=== PATIENT | female | born 1990 | race Asian ===

== ENCOUNTER 2024-09-12 07:45 | Inpatient (IN) ==
[2024-09-12] MEDS ORDERED: LIDOCAINE 1% LOCAL 20 ML VIAL INFIL PRN (08:00)
[2024-09-12] MEDS ORDERED: OXYTOCIN 30 UNITS/NSS 30 UNITS/500 ML BAG IV PRN ×2 (08:00→19:19)
[2024-09-12 08:43] LABS: Hematocrit (blood only) 39.4 % (37.0-47.0); Mean Corpuscular Hemoglobin 33.5 pg (25.0-34.0); Mean Corpuscular Hgb Conc 35.5 g/dL (32.0-36.0); Mean Corpuscular Volume 94.3 fL (80.0-100.0); Mean Platelet Volume 12.2 fL (9.4-12.4); Platelet Count 191 K/uL (130-400); RDW Coefficient of Variation 11.9 % (11.5-14.5); RDW Standard Deviation 41.4 fL (36.4-46.3); Red Blood Count 4.18 M/uL (4.20-5.40); White Blood Count 8.69 K/ul (4.8-10.8)
--- NOTE | 2024-09-12 08:50 | History & Physical Report ---
Date of Service September 12, 2024 Assessment & Plan (1) Post term over 40 weeks: (2) Encounter for induction of labor: (3) Gestational diabetes mellitus (GDM) affecting , antepartum: Plan admit, iv, labs. bsgs in active labor. fhts categ 1. arom done. add pitocin. exp ectant mgmt. epidural when desires. Admission and Anticipated Discharge Date Admission Date: September 12, 2024 History of Present Illness Chief Complaint: induction Primary Care Provider: NO PCP 34yo at 40+wks egmathieu presents to LD with cc of planned induction of labor. Some bleeding since exam yesterday. No rom. +FM PNC c/b 1. GDM PNL rhpos, ri, gbs neg OBH: g1 GYNH: nl paps no stds Allergies Allergy/AdvReac Type Severity Reaction Status Date / Time No Known Allergies Allergy Verified 09/11/24 10:20 Home Medications Medication Instructions Recorded Confirmed Type 21-iron fu-folic acid PO 01/25/24 09/11/24 History [ Complete] acetone (urine) test (Ketone Urine #50 ea 07/23/24 09/11/24 Rx Test strips) blood sugar diagnostic (OneTouch #150 ea 07/23/24 09/11/24 Rx Verio test strips) blood-glucose meter (OneTouch #1 ea 07/23/24 09/11/24 Rx Verio Reflect Meter) lancets 33 gauge (OneTouch Delica #150 ea 07/23/24 09/11/24 Rx Plus Lancet) Patient History Medical History (Updated 09/12/24 @ 08:48 by Gretel Bennett MD, FACOG) Varicella vaccination Surgical History No history of previous surgery Family History Grandfather (Paternal) Stomach cancer Father Diabetes Denies family history of Ovarian cancer Breast cancer Colorectal cancer Social History (Updated 09/12/24 @ 07:58 by Bhumika Raman, RN) Smoking Status: Never smoker Do You Dip or Chew Tobacco: No; Hx Alcohol Use: No Hx Substance Use: No Preferred Language: Nepali Communication Ability: Effective Visual Impairment: No Limitations Temperature Logging Operator Required: No Beliefs That Will Affect Care: None marital status: marital status details: Cheo Preston (31) [phone] Current Living Situation: Spouse Current Living Situation Comment: lives with spouse, no pets current occupational status: employed current occupation: [employer] Other Information That Helps Us Care for You: No Feels Safe at Home: Yes Safety Concerns: Feels Safe At This Time Diet: regular Diet Comment: GDM Assistive Devices: None Review of Systems as per Subjective / HPI Physical Exam Constitutional: WD/WN, vitals as above Respiratory: normal respiratory effort, lungs clear to auscultation Cardiovascular: Rate/Rhythm: regular rate and regular rhythm Gastrointestinal (Abdomen): soft gravid nt efw 7-8# Musculoskeletal: no edema nontender calves Neurologic: grossly normal Psychiatric: A+Ox3, euthymic affect Genitourinary: Manual OB Exam: + cervical dilation 3 cm, + cervical effacement (75%), + station -2 and + amniotic fluid (arom) clear OB Exam Monitor Tracing: + external FHT monitor used, + external uterine monitor used (irreg), + category I and + normal FHT variability Results & Data Vital Signs (Past 12 Hours) Vital Signs Temp Pulse Resp BP 09/12/24 07:59 97.9 F 68 20 114/64 09/12/24 07:55 68 114/64 Coding Level of Care Code None Diagnoses Post term over 40 weeks O48.0 Encounter for induction of labor Z34.90 Gestational diabetes mellitus (GDM) affecting , antepartum O24.419
[2024-09-12] MEDS: OXYTOCIN 30 UNITS/NSS 30 UNITS/500 ML BAG IV PRN (08:57)
[2024-09-12] MEDS: LACTATED RINGER'S 1,000 ML IV PRN (08:57)
--- NOTE | 2024-09-12 09:46 | Anesthesiology Consultation ---
Date of Service September 12, 2024 Assessment & Plan Chart Review Chart Review: Acceptable Risk for Labor Epidural Consults Requested none History Height/Weight Height: 5 ft 6.14 in Weight: 23.587 kg Allergies Allergy/AdvReac Type Severity Reaction Status Date / Time No Known Allergies Allergy Verified 09/11/24 10:20 Medications Home Medications Medication Instructions Recorded Confirmed Last Taken 21-iron fu-folic acid PO 01/25/24 09/11/24 09/10/24 [ Complete] acetone (urine) test (Ketone Urine #50 ea 07/23/24 09/11/24 Unknown Test strips) blood sugar diagnostic (OneTouch #150 ea 07/23/24 09/11/24 Unknown Verio test strips) blood-glucose meter (OneTouch #1 ea 07/23/24 09/11/24 Unknown Verio Reflect Meter) lancets 33 gauge (OneTouch Delica #150 ea 07/23/24 09/11/24 Unknown Plus Lancet) Active Medications Generic Name Dose Route Start Last Admin Trade Name Freq PRN Reason Stop Dose Admin Lactated Ringer's 1,000 mls @ 125 mls/hr 09/12/24 08:00 09/12/24 09:30 Lr IV 09/13/24 07:59 999 mls/hr .Q8H PRN Infusion L&D Protocol Protocol Oxytocin 30 units in 500 mls @ 3 mls/hr 09/12/24 08:45 09/12/24 09:30 Pitocin 30 Units/Nss IV 09/14/24 08:44 0.18 units/hr .Q24H PRN 3 mls/hr Labor Induction/Augmentation Titration Protocol 0.18 UNITS/HR Past Medical History Medical History (Updated 09/12/24 @ 08:48 by Gretel Bennett MD, FACOG) Varicella vaccination Past Family History Family History Grandfather (Paternal) Stomach cancer Father Diabetes Denies family history of Ovarian cancer Breast cancer Colorectal cancer Past Surgical History Surgical History No history of previous surgery Social History Smoking Status: Never smoker Do You Dip or Chew Tobacco: No Hx Alcohol Use: No Hx Substance Use: No Physical Exam Vital Signs Last Vital Signs Temp 36.6 C 09/12/24 07:59 Pulse 69 09/12/24 08:55 Resp 18 09/12/24 08:55 BP 131/86 09/12/24 08:55 Testing Laboratory Results 09/12/24 08:16 09/12/24 08:21 POC Glucose 93
[2024-09-12] MEDS: LIDOCAINE 2%/EPINEPHRINE 1:200,000 20 ML PF ONE (10:07)
[2024-09-12] MEDS: BUPIVACAINE 0.25% PF 30 ML VIAL ONE (10:07)
[2024-09-12] MEDS: fentANYL 2 MCG/ML BUPIVacaine 0.125%-NSS 100ML BAG ONE (10:08)
[2024-09-12] MEDS: SODIUM CHLORIDE 0.9% PF INJ 10 ML VIAL ONE (10:10)
[2024-09-12] MEDS: fentaNYL citrate PF 100 MCG/2 ML VIAL ONE (10:10)
[2024-09-12] MEDS ORDERED: SODIUM CHLORIDE 0.9% PF INJ 10 ML VIAL EPI PRN (10:16)
[2024-09-12] MEDS ORDERED: LIDOCAINE 2% MPF LOCAL 5 ML VIAL EPI PRN (10:16)
[2024-09-12] MEDS ORDERED: NALBUPHINE HCL INJ 10 MG/ML AMP IV PRN (10:16)
[2024-09-12] MEDS ORDERED: BUPIVACAINE 0.25% PF 30 ML VIAL EPI PRN (10:16)
[2024-09-12] MEDS ORDERED: ePHEDrine sulfate 50 MG/ML AMP IV PRN (10:16)
[2024-09-12] MEDS ORDERED: ROPIVACAINE 0.5% PF 5 MG/ML 20 ML VIAL EPI PRN (10:16)
[2024-09-12] MEDS ORDERED: NALOXONE HCL 1 MG in SODIUM CHLORIDE 0.9% 1,000 ML IV PRN (10:16)
[2024-09-12] MEDS ORDERED: NALOXONE HCL 0.4 MG/1 ML VIAL/CARP IV PRN (10:16)
[2024-09-12] MEDS ORDERED: diphenhydrAMINE 50 MG/ML VIAL IV PRN (10:16)
[2024-09-12] MEDS ORDERED: fentaNYL citrate PF 100 MCG/2 ML VIAL EPI PRN (10:16)
--- NOTE | 2024-09-12 12:08 | Labor Progress Brief Note ---
Date of Service September 12, 2024 Subjective pt comfortable with epidural. pit at 5 Assessment & Plan (1) Post term over 40 weeks: (2) Encounter for induction of labor: (3) Gestational diabetes mellitus (GDM) affecting , antepartum: Plan good cx change. fhts categ 1. need to increase pit to keep labor pattern regular. Admission and Anticipated Discharge Date Admission Date: September 12, 2024 Physical Exam Constitutional: WD/WN, vitals as above Genitourinary: Manual OB Exam: + cervical dilation 7 cm, + cervical effacement 80% and + station -2 OB Exam Monitor Tracing: + external FHT monitor used, + external uterine monitor used (q2-5 pit at 5), + category I and + normal FHT variability Results & Data Vital Signs (Past 12 Hours) Vital Signs Temp Pulse Resp BP Pulse Ox 09/12/24 12:01 96 09/12/24 12:01 76 09/12/24 12:01 68 130/70 09/12/24 11:56 67 95 09/12/24 11:51 74 95 09/12/24 11:46 71 121/74 96 09/12/24 11:41 69 96 09/12/24 11:36 79 98 09/12/24 11:31 97 09/12/24 11:31 73 09/12/24 11:31 72 132/85 09/12/24 11:26 71 97 09/12/24 11:21 72 96 09/12/24 11:16 96 09/12/24 11:16 70 09/12/24 11:16 71 131/91 09/12/24 11:11 77 97 09/12/24 11:06 77 97 09/12/24 11:02 63 120/87 09/12/24 11:01 74 97 09/12/24 11:00 20 09/12/24 11:00 98.6 F 20 09/12/24 10:58 76 120/76 09/12/24 10:56 74 95 09/12/24 10:52 73 120/79 09/12/24 10:51 75 94 09/12/24 10:48 73 126/84 09/12/24 10:46 78 94 09/12/24 10:42 71 118/77 09/12/24 10:41 71 94 03/05/25 10:39 67 133/68 03/05/25 10:36 96 H 95 09/12/24 10:33 77 18 103/65 09/12/24 10:31 70 94 09/12/24 10:27 71 18 124/73 09/12/24 10:26 73 95 09/12/24 10:22 75 20 120/71 09/12/24 10:21 72 18 111/63 09/12/24 10:21 72 95 09/12/24 10:17 72 111/63 09/12/24 10:16 74 96 09/12/24 10:15 77 18 115/68 09/12/24 10:13 75 18 119/71 09/12/24 10:11 71 18 122/74 95 09/12/24 10:09 72 18 124/71 09/12/24 10:07 71 18 126/74 09/12/24 10:06 70 97 09/12/24 10:05 98.6 F 74 18 94 09/12/24 10:03 75 114/73 09/12/24 10:01 74 125/80 96 09/12/24 09:56 96 09/12/24 09:56 77 09/12/24 09:56 71 126/79 09/12/24 09:51 76 99 09/12/24 08:55 69 18 131/86 09/12/24 07:59 97.9 F 68 20 114/64 09/12/24 07:55 68 114/64 Coding Level of Care Code None Diagnoses Post term over 40 weeks O48.0 Encounter for induction of labor Z34.90 Gestational diabetes mellitus (GDM) affecting , antepartum O24.419
[2024-09-12] MEDS: fentaNYL citrate PF 100 MCG/2 ML VIAL EPI STA (12:12)
[2024-09-12] MEDS: ePHEDrine sulfate 50 MG/ML AMP ONE (12:12)
[2024-09-12] MEDS: BUPIVACAINE 0.25% PF 30 ML VIAL EPI STA (12:12)
[2024-09-12] MEDS: LIDOCAINE 2%/EPINEPHRINE 1:200,000 20 ML PF EPI STA (12:13)
[2024-09-12] MEDS: SODIUM CHLORIDE 0.9% PF INJ 10 ML VIAL EPI STA (12:13)
--- NOTE | 2024-09-12 14:11 | Labor Progress Brief Note ---
Date of Service September 12, 2024 Subjective no pain with epidural Assessment & Plan (1) Post term over 40 weeks: (2) Encounter for induction of labor: (3) Gestational diabetes mellitus (GDM) affecting , antepartum: Plan making good cx change. fhts categ 1. c/w pit to keep labor pattern regular. Admission and Anticipated Discharge Date Admission Date: September 12, 2024 Physical Exam Constitutional: WD/WN, vitals as above Genitourinary: Manual OB Exam: + cervical dilation (8-9cm) OB Exam Monitor Tracing: + external FHT monitor used, + external uterine monitor used (q2-3, pit at 7), + category I and + normal FHT variability Results & Data Vital Signs (Past 12 Hours) Vital Signs Temp Pulse Resp BP Pulse Ox 09/12/24 14:06 70 96 09/12/24 14:01 78 108/62 98 09/12/24 13:56 75 95 09/12/24 13:51 77 94 09/12/24 13:46 70 118/77 95 09/12/24 13:41 70 94 09/12/24 13:36 72 94 09/12/24 13:31 67 95 09/12/24 13:30 72 121/68 09/12/24 13:26 68 95 09/12/24 13:21 69 94 09/12/24 13:16 68 94 09/12/24 13:15 67 118/69 09/12/24 13:11 70 94 09/12/24 13:06 70 96 09/12/24 13:01 69 119/68 95 09/12/24 13:00 20 09/12/24 13:00 98.6 F 20 09/12/24 12:56 69 95 09/12/24 12:51 71 95 09/12/24 12:46 71 95 09/12/24 12:45 69 116/74 09/12/24 12:41 69 96 09/12/24 12:36 70 94 09/12/24 12:31 69 96 09/12/24 12:30 69 114/69 09/12/24 12:26 69 96 09/12/24 12:21 71 96 09/12/24 12:16 70 95 09/12/24 12:15 68 120/73 09/12/24 12:11 72 96 09/12/24 12:06 77 96 09/12/24 12:01 96 09/12/24 12:01 76 03 12:01 68 130/70 0305 11:56 67 95 05 11:51 74 95 05 11:46 71 121/74 96 09/12/24 11:41 69 96 05 11:36 79 98 09/12/24 11:31 97 09/12/24 11:31 73 0305 11:31 72 132/85 05 11:26 71 97 05 11:21 72 96 05 11:16 96 09/12/24 11:16 70 03 11:16 71 131/91 09/12/24 11:11 77 97 09/12/24 11:06 77 97 09/12/24 11:02 63 120/87 05 11:01 74 97 09/12/24 11:00 20 09/12/24 11:00 98.6 F 20 09/12/24 10:58 76 120/76 05 10:56 74 95 05 10:52 73 120/79 05 10:51 75 94 0305 10:48 73 126/84 05 10:46 78 94 05 10:42 71 118/77 05 10:41 71 94 0305 10:39 67 133/68 0305 10:36 96 H 95 05 10:33 77 18 103/65 03/05 10:31 70 94 0305 10:27 71 18 124/73 03/05/25 10:26 73 95 03/05/25 10:22 75 20 120/71 03/05/25 10:21 72 18 111/63 03/05/25 10:21 72 95 03/05/25 10:17 72 111/63 03/05/25 10:16 74 96 05/25 10:15 77 18 115/68 03/05/25 10:13 75 18 119/71 03/05/25 10:11 71 18 122/74 95 03/05/25 10:09 72 18 124/71 03/05/25 10:07 71 18 126/74 09/12/24 10:06 70 97 09/12/24 10:05 98.6 F 74 18 94 09/12/24 10:03 75 114/73 09/12/24 10:01 74 125/80 96 09/12/24 09:56 96 09/12/24 09:56 77 09/12/24 09:56 71 126/79 09/12/24 09:51 76 99 09/12/24 08:55 69 18 131/86 09/12/24 07:59 97.9 F 68 20 114/64 09/12/24 07:55 68 114/64 Coding Level of Care Code None Diagnoses Post term over 40 weeks O48.0 Encounter for induction of labor Z34.90 Gestational diabetes mellitus (GDM) affecting , antepartum O24.419
[2024-09-12] MEDS: fentANYL 2 MCG/ML BUPIVacaine 0.125%-NSS 100ML BAG EPI PRN (17:35)
--- NOTE | 2024-09-12 17:41 | Labor Progress Brief Note ---
Date of Service September 12, 2024 Subjective feeling some pressure Assessment & Plan (1) Post term over 40 weeks: (2) Encounter for induction of labor: (3) Gestational diabetes mellitus (GDM) affecting , antepartum: Plan begin 2nd stage. fhts categ 1. Admission and Anticipated Discharge Date Admission Date: September 12, 2024 Physical Exam Constitutional: WD/WN, vitals as above Genitourinary: Manual OB Exam: + cervical dilation 10 cm, + cervical effacement 100% and + station + 2 OB Exam Monitor Tracing: + external FHT monitor used, + external uterine monitor used, + category I and + normal FHT variability Results & Data Vital Signs (Past 12 Hours) Vital Signs Temp Pulse Resp BP Pulse Ox 09/12/24 17:36 100 H 92 09/12/24 17:34 86 87 L 09/12/24 17:31 192 H 89 L 09/12/24 17:30 86 134/76 09/12/24 17:28 229 H 77 L 09/12/24 17:26 105 H 93 09/12/24 17:23 81 86 L 09/12/24 17:21 77 95 09/12/24 17:16 82 97 09/12/24 17:15 99.0 F 82 18 123/76 09/12/24 17:11 79 96 09/12/24 17:07 77 88 L 09/12/24 17:06 78 96 09/12/24 17:01 82 130/79 93 09/12/24 16:56 78 93 09/12/24 16:51 88 96 09/12/24 16:46 94 09/12/24 16:46 76 09/12/24 16:46 80 130/70 09/12/24 16:41 88 93 09/12/24 16:36 80 93 09/12/24 16:31 94 09/12/24 16:31 82 09/12/24 16:31 78 123/81 09/12/24 16:30 20 09/12/24 16:30 20 09/12/24 16:26 96 H 95 09/12/24 16:21 83 95 09/12/24 16:16 90 131/81 95 09/12/24 16:13 84 89 L 09/12/24 16:11 91 H 96 09/12/24 16:06 94 H 94 09/12/24 16:03 96 H 89 L 09/12/24 16:01 85 95 09/12/24 16:00 88 20 125/79 09/12/24 15:56 103 H 94 09/12/24 15:51 99 H 94 09/12/24 15:46 81 119/80 94 09/12/24 15:41 80 95 09/12/24 15:36 78 94 09/12/24 15:31 81 94 09/12/24 15:30 78 126/79 09/12/24 15:26 74 95 09/12/24 15:21 75 95 09/12/24 15:16 77 97 09/12/24 15:15 76 122/72 09/12/24 15:11 80 96 09/12/24 15:06 76 97 09/12/24 15:01 96 09/12/24 15:01 76 03 15:01 72 121/74 09/12/24 14:56 77 95 09/12/24 14:51 76 95 09/12/24 14:46 74 95 09/12/24 14:45 98.6 F 80 18 120/74 09/12/24 14:41 79 94 09/12/24 14:36 68 96 09/12/24 14:31 75 96 09/12/24 14:30 69 115/67 09/12/24 14:26 72 95 09/12/24 14:21 78 96 09/12/24 14:16 72 117/68 95 09/12/24 14:11 70 95 09/12/24 14:06 70 96 09/12/24 14:01 78 108/62 98 05 13:56 75 95 09/12/24 13:51 77 94 09/12/24 13:46 70 118/77 95 05 13:41 70 94 05 13:36 72 94 05 13:31 67 95 09/12/24 13:30 72 121/68 05 13:26 68 95 09/12/24 13:21 69 94 05 13:16 68 94 05 13:15 67 118/69 0305 13:11 70 94 09/12/24 13:06 70 96 09/12/24 13:01 69 119/68 95 0305 13:00 20 03 13:00 98.6 F 20 09/12/24 12:56 69 95 09/12/24 12:51 71 95 03 12:46 71 95 09/12/24 12:45 69 116/74 09/12/24 12:41 69 96 05 12:36 70 94 05 12:31 69 96 09/12/24 12:30 69 114/69 05 12:26 69 96 09/12/24 12:21 71 96 09/12/24 12:16 70 95 09/12/24 12:15 68 120/73 05 12:11 72 96 09/12/24 12:06 77 96 09/12/24 12:01 96 09/12/24 12:01 76 03 12:01 68 130/70 05 11:56 67 95 09/12/24 11:51 74 95 09/12/24 11:46 71 121/74 96 05 11:41 69 96 09/12/24 11:36 79 98 05 11:31 97 09/12/24 11:31 73 0305 11:31 72 132/85 05 11:26 71 97 05 11:21 72 96 09/12/24 11:16 96 09/12/24 11:16 70 09/12/24 11:16 71 131/91 05 11:11 77 97 05 11:06 77 97 05 11:02 63 120/87 09/12/24 11:01 74 97 05 11:00 20 09/12/24 11:00 98.6 F 20 09/12/24 10:58 76 120/76 05 10:56 74 95 05 10:52 73 120/79 05 10:51 75 94 05 10:48 73 126/84 05 10:46 78 94 05 10:42 71 118/77 05 10:41 71 94 05/25 10:39 67 133/68 03/05/25 10:36 96 H 95 09/12/24 10:33 77 18 103/65 09/12/24 10:31 70 94 09/12/24 10:27 71 18 124/73 09/12/24 10:26 73 95 09/12/24 10:22 75 20 120/71 09/12/24 10:21 72 18 111/63 09/12/24 10:21 72 95 09/12/24 10:17 72 111/63 09/12/24 10:16 74 96 09/12/24 10:15 77 18 115/68 09/12/24 10:13 75 18 119/71 09/12/24 10:11 71 18 122/74 95 09/12/24 10:09 72 18 124/71 09/12/24 10:07 71 18 126/74 09/12/24 10:06 70 97 09/12/24 10:05 98.6 F 74 18 94 09/12/24 10:03 75 114/73 09/12/24 10:01 74 125/80 96 09/12/24 09:56 96 09/12/24 09:56 77 09/12/24 09:56 71 126/79 09/12/24 09:51 76 99 09/12/24 08:55 69 18 131/86 09/12/24 07:59 97.9 F 68 20 114/64 09/12/24 07:55 68 114/64 Coding Level of Care Code None Diagnoses Post term over 40 weeks O48.0 Encounter for induction of labor Z34.90 Gestational diabetes mellitus (GDM) affecting , antepartum O24.419
[2024-09-12] MEDS: miSOPROStoL 200 MCG TAB PR ONE (19:15)
--- NOTE | 2024-09-12 19:18 | Delivery Summary ---
Vaginal Delivery Summary Date of Service September 12, 2024 Vaginal Delivery Summary and 2nd Degree LAC The patient dilated to complete and pushed to deliver a viable male infant Apgars 8 and 9 via over 2nd degree perineal laceration. Mouth and nose bulb suctioned at perineum. Shoulders and body delivered with ease. Body cord noted. was vigorous and crying at . Cord clamped at 30 seconds of life and to maternal abdomen where the cord was then doubly clamped and cut. Placenta delivered spontaneously and intact, three-vessel cord. Hemostasis not achieved with dilute pitocin and uterine massage and drainage of the bladder for approximately 350 cc under sterile conditions. Therefore 1000mcg cytotec placed rectally. Cervix with tag of tissue that was dangling from the edge, trimmed and stitched with 4-0 vicryl for excellent hemostasis. Uterine tone improved. Sulci intact. QBL 758 cc. Mother and baby stable in recovery. [facility] Vaginal Delivery Charge Delivery Type Details: and 2nd Degree LAC
[2024-09-12] MEDS ORDERED: oxyCODONE/ACETAMINOPHEN 5mg/325mg TAB PO PRN (19:19)
[2024-09-12] MEDS ORDERED: ACETAMINOPHEN 325 MG TAB PO PRN (19:19)
[2024-09-12] MEDS ORDERED: HYDROCORTISONE ACETATE 25 MG SUPP PR PRN (19:19)
[2024-09-12] MEDS: DIPHTHER/TETAN/PERTUS Vaccine (Tdap, Adol/Adult) 0.5mL IM ONE (19:59)
[2024-09-12] MEDS: BENZOCAINE 20% SPRY 85 APPLN/85 GM CAN EXT PRN (21:19)
[2024-09-12] MEDS: DOCUSATE SODIUM 100 MG CAP PO SCH (21:19)
[2024-09-12] MEDS: IBUPROFEN 600 MG TAB PO PRN (22:03)
--- NOTE | 2024-09-12 22:26 | Anesthesia Procedure Note ---
Date of Service September 12, 2024 Anesthesia Post Epidural Note Vital Signs Vital Signs: Temp Pulse Resp BP Pulse Ox 36.8 C 120 H 18 121/84 99 09/12/24 21:18 09/12/24 21:18 09/12/24 21:18 09/12/24 21:18 09/12/24 18:58 Pain Intensity Bilateral Abdomen: Pain Intensity: 0 Notes Mental Status: alert / awake / arousable Nausea / Vomiting: adequately controlled Pain: adequately controlled Airway Patency, RR, SpO2: stable & adequate BP & HR: stable & adequate Hydration State: stable & adequate Neuraxial Anesthesia: was administered and sensory block is resolving Anesthetic Complications: no major complications apparent and Pt Satisfied with anesthetic care Epidural: Removed without complications and With tip intact
[2024-09-13 06:10] LABS: Hematocrit (blood only) 31.3 % (37.0-47.0); Hemoglobin 11.2 g/dl (12.0-16.0)
--- NOTE | 2024-09-13 06:42 | Obstetrical Progress Note ---
Date of Service September 13, 2024 Assessment & Plan (1) state: (2) Perineal laceration during delivery: Plan Yakelin is a 34yo day 1 s/p with 2nd degree perineal laceration and 760cc qbl controlled with cytotec. Feels well today, VSS Continue care Encourage ambulation and Pain control with ibuprofen as needed Hgb: 11.2 Considering home tomorrow 09/14/[address] Bennett in 6wks Admission and Anticipated Discharge Date Admission Date: September 12, 2024 Supervising Physician Co-Signing Physician Notes Resident Physician Supervision Note: I was present with Dr. Barker during the history and exam. I discussed the case with the resident and agree with the findings and plan as documented in the note. Any exceptions or clarifications are listed here: doing well, eating, voiding, ambulating. abd soft ff 2 down nt, ext nt calves. ppd#1 routine care. hgb noted. Documented By: Gretel Bennett MD, FACOG Subjective Yakelin is a 34yo day 1 s/p with 2nd degree perineal laceration and 760cc qbl controlled with cytotec. 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 Sx: denies Physical Exam Physical Exam: Constitutional: WD/WN, vitals as above Psychiatric: A&Ox3, euthymic GI/abd: +BS, abdomensoft, fundus palpable at umbilicus Ext: no LE edema, calves nontender to palpation, wiggles toes Results & Data Vital Signs (Past 12 Hours) Vital Signs Temp Pulse Pulse Resp BP BP BP 09/13/24 03:25 36.4 C L 72 16 100/68 09/13/24 00:30 36.4 C L 84 18 118/86 09/12/24 21:45 36.7 C 95 H 18 114/75 09/12/24 21:18 36.8 C 18 09/12/24 21:18 120 H 121/84 09/12/24 21:16 114 H 117/84 09/12/24 21:01 111 H 128/83 09/12/24 20:47 18 09/12/24 20:47 109 H 138/81 09/12/24 20:17 16 09/12/24 20:16 110 H 129/80 09/12/24 20:02 16 09/12/24 20:01 80 131/79 09/12/24 19:46 16 09/12/24 19:46 92 H 130/71 09/12/24 19:34 100 H 131/67 09/12/24 19:32 18 09/12/24 19:17 37.0 C 18 09/12/24 19:17 110 H 134/65 09/12/24 19:01 104 H 116/73 09/12/24 18:58 114 H 09/12/24 18:53 09/12/24 18:53 117 H 09/12/24 18:53 130 H 117/73 09/12/24 18:48 119 H 09/12/24 18:43 117 H Pulse Ox O2 Del Method 09/13/24 03:25 96 Room Air 09/13/24 00:30 99 Room Air 09/12/24 21:45 97 Room Air 09/12/24 21:18 09/12/24 21:18 09/12/24 21:16 09/12/24 21:01 09/12/24 20:47 09/12/24 20:47 09/12/24 20:17 09/12/24 20:16 09/12/24 20:02 09/12/24 20:01 09/12/24 19:46 09/12/24 19:46 09/12/24 19:34 09/12/24 19:32 09/12/24 19:17 09/12/24 19:17 09/12/24 19:01 09/12/24 18:58 99 09/12/24 18:53 98 09/12/24 18:53 09/12/24 18:53 09/12/24 18:48 95 09/12/24 18:43 100 Resident Activity Tracking Resident Involvement: Resident Care Provided Care Provided: OB Delivery (2) Perineal laceration during delivery Perineal laceration degree: second degree Qualified Code(s): O70.1 - Second degree perineal laceration during delivery
[2024-09-13] MEDS: PRENATAL VITAMIN 1 TAB PO SCH (10:17)
[2024-09-13] MEDS: bisacodyL 5 MG TABEC PO SCH (20:08)
[2024-09-14 00:32] VITALS: RESP 16; TEMP 97.3
--- NOTE | 2024-09-14 06:25 | Obstetrical Progress Note ---
Date of Service September 14, 2024 Assessment & Plan (1) state: (2) Perineal laceration during delivery: Plan Yakelin is a 34yo day 2 s/p with 2nd degree perineal laceration and 760cc qbl controlled with cytotec. Feels well today, VSS Continue care Encourage ambulation and Pain control with ibuprofen as needed Hgb: 11.2 on 09/13/24 Home today Follow up with Dr. Bennett in 6wks Admission and Anticipated Discharge Date Admission Date: September 12, 2024 Supervising Physician Co-Signing Physician Notes Resident Physician Supervision Note: I was present with Dr. Barker during the history and exam. I discussed the case with the resident and agree with the findings and plan as documented in the note. Any exceptions or clarifications are listed here: [None] Documented By: Ruth Rachel MD, FACOG Subjective Yakelin is a 34yo day 2 s/p with 2nd degree perineal laceration and 760cc qbl controlled with cytotec. Feeling: good Ambulation: yes Void: yes Lochia: decreasing Diet: tolerating Feeding: breast, still feels like not enough milk is in yet as baby has needed bottles after Sx: denies Physical Exam Physical Exam: Constitutional: WD/WN, vitals as above GI/abd: +BS, abdomen soft, fundus palpable 2fw- umbilicus Ext: no LE edema, calves nontender to palpation, wiggles toes Psychiatric: A&Ox3, euthymic Results & Data Vital Signs (Past 12 Hours) Vital Signs Temp Pulse Resp BP Pulse Ox O2 Del Method 09/13/24 23:25 36.3 C L 84 16 105/71 96 Room Air Resident Activity Tracking Resident Involvement: Resident Care Provided Care Provided: OB Delivery (2) Perineal laceration during delivery Perineal laceration degree: second degree Qualified Code(s): O70.1 - Second degree perineal laceration during delivery
[2024-09-14 09:28] VITALS: BP 102/63; O2SAT 97
[2024-09-14 10:20] VITALS: PULSE 82
== END 2024-09-14 13:00 | disposition home or self-care (01) | DRG 807 ==
LOC: 4S1 07:45 → 4E2 21:57